=== PATIENT | male | born 1940 | race Caucasian/White ===

== ENCOUNTER 2016-04-30 23:50 | Observation (INO) | payer MEDICARE, BC ==
[2016-05-01] MEDS ORDERED: ASPIRIN 81 MG CHEW PO STA (00:03)
[2016-05-01] MEDS ORDERED: NITROGLYCERIN OINT 1 INCH/GM PACKET TOPICAL STA (00:03)
--- NOTE | 2016-05-01 00:14 | ED ---
General Adult HPI - General Chief complaint: Chest Pain Stated complaint: indigestion Time Seen by Provider: 04/30/16 23:55 Source: patient, RN notes reviewed Mode of arrival: ambulatory Limitations: no limitations - History of Present Illness Initial comments: This is a 75-year-old male presents to the emergency department complaining of some chest pain. Patient describes his discomfort. Patient states it started 2 hours prior to arrival. Patient states he went to his right shoulder when he was driving here but is since subsided from the shoulder but continues in the chest. Patient denies any difficulty breathing. Patient denies any diaphoresis. Patient denies any nausea. Patient denies abdominal pain patient denies nausea vomiting or diarrhea. Patient denies any recent fever chills or cough. Patient denies headache patient denies numbness weakness. Patient denies any lightheadedness dizziness or near syncopal episode. Patient states he thought was heartburn but got a little more significantly thought he needed to come to the hospital to be checked out. Patient states he has congestive heart failure but has never had a heart attack. Patient states he does have diabetes been denies any high cholesterol but does have hypertension. - Related Data Allergies Allergy/AdvReac Type Severity Reaction Status Date / Time No Known Allergies Allergy Verified 04/30/16 23:55 Review of Systems ROS Statement: Those systems with pertinent positive or pertinent negative responses have been documented in the HPI. ROS Other: All systems not noted in ROS Statement are negative. Past Medical History Past Medical History: Coronary Artery Disease (CAD), Diabetes Mellitus, Hyperlipidemia, Hypertension Additional Past Medical History / Comment(s): CHF History of Any Multi-Drug Resistant Organisms: None Reported Past Surgical History: No Surgical Hx Reported Past Psychological History: No Psychological Hx Reported Smoking Status: Former smoker Past Alcohol Use History: None Reported Past Drug Use History: None Reported General Exam - General Exam Comments Initial Comments: GENERAL: Patient is well-developed and well-nourished. Patient is nontoxic and well- hydrated and is in mild distress. ENT: Neck is soft and supple. No significant lymphadenopathy is noted. Oropharynx is clear. Moist mucous membranes. Neck has full range of motion without eliciting any pain. EYES: The sclera were anicteric and conjunctiva were pink and moist. Extraocular movements were intact and pupils were equal round and reactive to light. Eyelids were unremarkable. PULMONARY: Unlabored respirations. Good breath sounds bilaterally. No audible rales rhonchi or wheezing was noted. CARDIOVASCULAR: There is a regular rate and rhythm without any murmurs gallops or rubs. Femoral pulses are equal bilaterally ABDOMEN: Soft and nontender with normal bowel sounds. No palpable organomegaly was noted. There is no palpable pulsatile mass. SKIN: Skin is clear with no lesions or rashes and otherwise unremarkable. NEUROLOGIC: Patient is alert and oriented x3. Cranial nerves II through XII are grossly intact. Motor and sensory are also intact. Normal speech, volume and content. Symmetrical smile. MUSCULOSKELETAL: Normal extremities with adequate strength and full range of motion. 1+ edema bilateral LYMPHATICS: No significant lymphadenopathy is noted PSYCHIATRIC: Normal psychiatric evaluation. 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 Did not start patient on heparin because patient was on Coumadin and the INR was 2.1. Patient is however an unstable angina and will be admitted I spoke with admit the patient and I consult cardiology. EKG showed atrial fibrillation at 60 bpm EKG was a very poor quality QRS interval showed 140 QT was 408 QTC is 433. Patient had no ST segment elevation or depression or ectopy noted A repeat was done because of the poor quality of the first one showed atrial fibrillation at 63 bpm QRS was 140 QT interval is 448 QTC is 458 patient right bundle branch block and it was no ST segment elevation or depression. - Lab Data Result diagrams: 05/01/16 00:20 05/01/16 00:20 Lab Results 05/01/16 05/01/16 05/01/16 Range/Units 00:20 00:20 00:20 WBC 11.4 H (3.8-10.6) k/uL RBC 4.54 (4.30-5.90) m/uL Hgb 12.0 L (13.0-17.5) gm/dL Hct 40.0 (39.0-53.0) % MCV 88.1 (80.0-100.0) fL MCH 26.5 (25.0-35.0) pg MCHC 30.1 L (31.0-37.0) g/dL RDW 13.8 (11.5-15.5) % Plt Count 261 (150-450) k/uL Neutrophils % 83 % Lymphocytes % 8 % Monocytes % 5 % Eosinophils % 3 % Basophils % 0 % Neutrophils # 9.5 H (1.3-7.7) k/uL Lymphocytes # 0.9 L (1.0-4.8) k/uL Monocytes # 0.6 (0-1.0) k/uL Eosinophils # 0.3 (0-0.7) k/uL Basophils # 0.0 (0-0.2) k/uL Hypochromasia Slight PT (9.0-12.0) sec INR (<1.1) APTT (22.0-30.0) sec Sodium 139 (137-145) mmol/L Potassium 4.7 (3.5-5.1) mmol/L Chloride 102 (98-107) mmol/L Carbon Dioxide 24 (22-30) mmol/L Anion Gap 13 mmol/L BUN 27 H (9-20) mg/dL Creatinine 1.10 (0.66-1.25) mg/dL Est GFR (MDRD) Af Amer >60 (>60 ml/min/1.73 sqM) Est GFR (MDRD) Non-Af >60 (>60 ml/min/1.73 sqM) Glucose 170 H (74-99) mg/dL Calcium 9.1 (8.4-10.2) mg/dL Magnesium 1.3 L (1.6-2.3) mg/dL Total Bilirubin 0.7 (0.2-1.3) mg/dL AST 23 (17-59) U/L ALT 39 (21-72) U/L Alkaline Phosphatase 95 (38-126) U/L Total Creatine Kinase 92 (55-170) U/L CK-MB (CK-2) 1.7 (0.0-2.4) ng/mL CK-MB (CK-2) Rel Index 1.8 Troponin I 0.021 (0.000-0.034) ng/mL Total Protein 6.8 (6.3-8.2) g/dL Albumin 3.9 (3.5-5.0) g/dL 05/01/16 Range/Units 00:20 WBC (3.8-10.6) k/uL RBC (4.30-5.90) m/uL Hgb (13.0-17.5) gm/dL Hct (39.0-53.0) % MCV (80.0-100.0) fL MCH (25.0-35.0) pg MCHC (31.0-37.0) g/dL RDW (11.5-15.5) % Plt Count (150-450) k/uL Neutrophils % % Lymphocytes % % Monocytes % % Eosinophils % % Basophils % % Neutrophils # (1.3-7.7) k/uL Lymphocytes # (1.0-4.8) k/uL Monocytes # (0-1.0) k/uL Eosinophils # (0-0.7) k/uL Basophils # (0-0.2) k/uL Hypochromasia PT 20.1 H (9.0-12.0) sec INR 2.1 (<1.1) APTT 30.3 H (22.0-30.0) sec Sodium (137-145) mmol/L Potassium (3.5-5.1) mmol/L Chloride (98-107) mmol/L Carbon Dioxide (22-30) mmol/L Anion Gap mmol/L BUN (9-20) mg/dL Creatinine (0.66-1.25) mg/dL Est GFR (MDRD) Af Amer (>60 ml/min/1.73 sqM) Est GFR (MDRD) Non-Af (>60 ml/min/1.73 sqM) Glucose (74-99) mg/dL Calcium (8.4-10.2) mg/dL Magnesium (1.6-2.3) mg/dL Total Bilirubin (0.2-1.3) mg/dL AST (17-59) U/L ALT (21-72) U/L Alkaline Phosphatase (38-126) U/L Total Creatine Kinase (55-170) U/L CK-MB (CK-2) (0.0-2.4) ng/mL CK-MB (CK-2) Rel Index Troponin I (0.000-0.034) ng/mL Total Protein (6.3-8.2) g/dL Albumin (3.5-5.0) g/dL Disposition Clinical Impression: Unstable angina pectoris Disposition: ADMITTED IP TO THIS [facility] Time of Disposition: 01:10
[2016-05-01 00:31] LABS: Basophils % (A) 0 %; CH 27.3; CHCM 31.2; Eosinophils # (A) 0.3 k/uL (0-0.7); Eosinophils % (A) 3 %; HDW 2.59; Hypochromasia Slight; Luc # (Auto) 0.12; Luc % (Auto) 1; Lymphocytes # (A) 0.9 k/uL (1.0-4.8); Lymphocytes % (A) 8 %; MCH 26.5 pg (25.0-35.0); MCHC 30.1 g/dL (31.0-37.0); MCV 88.1 fL (80.0-100.0); Mean Platelet Volume 8.1; Monocytes # (A) 0.6 k/uL (0-1.0); Monocytes % (A) 5 %; Neutrophils # (A) 9.5 k/uL (1.3-7.7); Neutrophils % (A) 83 %; RBC 4.54 m/uL (4.30-5.90); RDW 13.8 % (11.5-15.5); WBC 11.4 k/uL (3.8-10.6); WBC (Perox) 12.16
[2016-05-01 00:43] LABS: ALT 39 U/L (21-72); AST 23 U/L (17-59); Alkaline Phosphatase 95 U/L (38-126); Anion Gap 13 mmol/L; Blood Urea Nitrogen 27 mg/dL (9-20); Calcium 9.1 mg/dL (8.4-10.2); Carbon Dioxide 24 mmol/L (22-30); Chloride 102 mmol/L (98-107); Glucose 170 mg/dL (74-99); Magnesium 1.3 mg/dL (1.6-2.3); Non-African American GFR(MDRD) >60 (>60 ml/min/1.73 sqM); Potassium 4.7 mmol/L (3.5-5.1); Sodium 139 mmol/L (137-145); Total Bilirubin 0.7 mg/dL (0.2-1.3); Total Protein 6.8 g/dL (6.3-8.2)
[2016-05-01 00:44] LABS: INR 2.1 (<1.1); Partial Thromboplastin Time 30.3 sec (22.0-30.0); Prothrombin Time 20.1 sec (9.0-12.0)
--- NOTE | 2016-05-01 00:53 | XR ---
EXAMINATION TYPE: XR chest 2V DATE OF EXAM: 05/01/2016 12:36 AM COMPARISON: 10/24/2010 HISTORY: Chest pain and indigestion history of CHF. TECHNIQUE: Frontal and lateral views of the chest are obtained. FINDINGS: Mild increased densities in both lung bases are most likely related to mild chronic fibrotic changes. Underlying of active infiltrates in the lung basal areas cannot be excluded. No pneumothorax or pleural effusion is noted. Mild to moderate cardiomegaly and atherosclerotic calci fication is noted in the aortic arch. The osseous structures are intact. IMPRESSION: 1. Possible mild active infiltrates in both lung bases. 2. Chronic lung changes. 3. Cardiomegaly.
[2016-05-01 01:01] LABS: Creatine Kinase MB 1.7 ng/mL (0.0-2.4); Troponin I 0.021 ng/mL (0.000-0.034)
[2016-05-01] MEDS ORDERED: MORPHINE SULFATE 2 MG/ML SYRINGE IVP ONE (01:29)
[2016-05-01] MEDS ORDERED: NITROGLYCERIN SL TABS 0.4 MG TAB SUBLINGUAL STA (01:29)
[2016-05-01] MEDS: NITROGLYCERIN SL TABS 0.4 MG TAB SUBLINGUAL PRN ×2 (01:33→02:15)
[2016-05-01 02:22] VITALS: BMI 43.0
[2016-05-01] MEDS: MAG HYDROX/AL HYDROX/SIMETH 30 ML CUP PO PRN ×2 (02:42→10:18)
[2016-05-01] MEDS ORDERED: ACETAMINOPHEN TAB 500 MG TAB PO PRN (03:03)
[2016-05-01] MEDS ORDERED: HYDROmorphone 1 MG/ML 1 ML SYRINGE IVP STA (03:16)
[2016-05-01] MEDS: NITROGLYCERIN OINT 1 INCH/GM PACKET TOPICAL SCH ×2 (04:53→12:19)
[2016-05-01 06:53] LABS: Glucose,Whole Blood 306 mg/dL (75-99)
[2016-05-01 08:21] VITALS: RESP 18
[2016-05-01 08:49] LABS: Creatine Kinase MB 1.2 ng/mL (0.0-2.4); Troponin I 0.02 ng/mL (0.000-0.034)
[2016-05-01] MEDS ORDERED: NON-FORMULARY DRUG (Aspirin Ec 325 MG) PO SCH (10:15)
[2016-05-01] MEDS ORDERED: EZETIMIBE 10 MG TAB PO SCH (10:30)
[2016-05-01] MEDS ORDERED: ATORVASTATIN 10 MG TAB PO SCH (10:30)
[2016-05-01] MEDS ORDERED: HYDROCHLOROTHIAZIDE 50 MG TAB PO SCH (10:30)
[2016-05-01] MEDS ORDERED: amLODIPine 5 MG TAB PO SCH (10:30)
[2016-05-01] MEDS ORDERED: LOSARTAN 50 MG TAB PO SCH (10:30)
[2016-05-01 11:26] LABS: Amylase 36 U/L (30-110)
[2016-05-01 11:50] LABS: Troponin I 0.019 ng/mL (0.000-0.034)
[2016-05-01 11:56] VITALS: BP 158/66; PULSE 57; TEMP 99
[2016-05-01] MEDS ORDERED: PANTOPRAZOLE 40 MG TABLET PO STA (12:05)
[2016-05-01] MEDS ORDERED: glipiZIDE 10 MG TAB PO SCH (12:15)
[2016-05-01 12:23] LABS: Glucose,Whole Blood 409 mg/dL (75-99)
[2016-05-01 12:24] LABS: Creatine Kinase MB 1.2 ng/mL (0.0-2.4)
[2016-05-01 12:28] LABS: Hemoglobin A1C 8.3 % (4.2-6.1)
[2016-05-01] MEDS ORDERED: INSULIN LISPRO (humaLOG) 300 UNIT/3 ML VIAL SQ ONE (12:32)
[2016-05-01] MEDS ORDERED: INSULIN NPH 300 UNIT/3 ML VIAL SQ ONE (12:33)
--- NOTE | 2016-05-01 12:41 | HP ---
DATE OF ADMISSION: 05/01/2016 PRESENTING COMPLAINT: Epigastric pain. HISTORY OF PRESENTING COMPLAINT: This is a 75-year-old pleasant gentleman patient of Dr. Basurto. Patient's chronic stable medical conditions include CHF, diabetes, GERD, hyperlipidemia, hypertension. Patient yesterday felt a severe sense of indigestion, discomfort in the epigastric area with pain going to both the shoulders. Patient actually vomited. The patient the night before had beef jerky and spicy beef sticks more than usual. There is no shortness of breath. No dizziness. Patient had bleeding ulcer in the past and still feeling the discomfort in the epigastric area and in the lower sternal area. Feels more like indigestion. Because of his cardiac history, patient admitted to rule out a cardiac cause. REVIEW OF SYSTEMS: CONSTITUTIONAL: None. HEENT: None. RESPIRATORY: None. CARDIOVASCULAR: No precordial pain. GASTROINTESTINAL: As above. GENITOURINARY: None. MUSCULOSKELETAL: Some pain in the joints. DERMATOLOGICAL: None. HEMATOLOGICAL: None. LYMPHATICS: None. PSYCHIATRY: None. NEUROLOGICAL: None. PAST MEDICAL HISTORY: Atrial fibrillation, congestive heart failure, diabetes mellitus type 2., GERD, hyperlipidemia, hypertension, psoriasis. PAST SURGICAL HISTORY: Hernia repair. SOCIAL HISTORY: The patient did smoke in the past. No alcohol. 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 . Family history of coronary artery disease. HOME MEDICATIONS: 1. Norvasc 5 mg p.o. daily. 2. Irbesartan 300 mg p.o. daily. 3. Hydrochlorothiazide 50 mg p.o. daily. 4. Januvia 100 mg p.o. q.h.s. 5. Glucovance 5/500 one tablet p.o. b.i.d. 6. Coumadin 10 mg on Thursday, Thursday, , Thursday and 7.5 on Thursday, Thursday and Thursday. 7. Omeprazole 20 mg p.o. daily. 8. Vytorin 10/20 one tablet p.o. daily. 9. Vitamin D3 one tablet p.o. daily. 10. Aspirin 325 mg daily. ALLERGIES: None. ON EXAMINATION: VITAL SIGNS ON PRESENTATION: Temperature 98, pulse 69, respirations 20, blood pressure 188/75, pulse ox 96% on 2 L. GENERAL APPEARANCE: Well built, BMI of 43.1, sitting up, not in distress. EYES: Pupils equal. Conjunctivae normal. HEENT: External appearance of nose and ears normal. Oral cavity normal. NECK: JVD not raised. Mass not palpable. RESPIRATORY: Effort normal. LUNGS: Slightly decreased breath sounds. CARDIOVASCULAR: First and second sounds normal. Edema present. ABDOMEN: Soft, nontender, distended. Liver and spleen not palpable. LYMPHATIC: No lymph nodes palpable in the neck or axillae. PSYCHIATRY: Alert and oriented x3. Mood and affect normal. NEUROLOGICAL: Pupils equal. Cranial nerves grossly intact. Power and sensation grossly intact. INVESTIGATIONS: White count 11.4, hemoglobin 12, platelets 261. INR 2.1. Potassium 4.7. BUN 27, creatinine 1.10. Glucose 170, repeat 306. Troponin 0.021, 0.020. EKG shows right bundle brunch block, atrial fibrillation, rate controlled. ASSESSMENT: 1. Acute epigastric pain with localized tenderness in a patient who had some spicy food with prior history of bleeding peptic ulcer disease, most likely flare up of gastritis or maybe even an underlying ulcer. Given his cardiac history, will get a cardiac opinion, but this all appears to be really GI. 2. Right bundle branch block. 3. Chronic congestive heart failure, ejection fraction not known. 4. Diabetes mellitus type 2 on oral hypoglycemics. 5. Obesity, morbid, body mass index 43.1. 6. Severe gastroesophageal reflux disease. 7. Hyperlipidemia. 8. Essential hypertension. PLAN: I gave patient bedside milk and yogurt, right away symptoms felt better. Will cut back on the dose of aspirin. Cardiology was consulted to give their opinion. Home medication will be resumed. Patient was told to improve his diet. Patient will be put on PPIs. In the meantime, other medication and treatment plan is to continue.
[2016-05-01] MEDS ORDERED: WARFARIN 10 MG TAB PO SCH (18:00)
[2016-05-01] MEDS ORDERED: LINAGLIPTIN 5 MG TABLET PO SCH (21:00)
[2016-05-01] MEDS ORDERED: metFORMIN 500 MG TAB PO SCH (21:00)
[2016-05-02] MEDS ORDERED: ASPIRIN 325 MG TAB PO SCH (09:00)
[2016-05-02] MEDS ORDERED: WARFARIN 7.5 MG TAB PO SCH (18:00)
--- NOTE | 2016-05-07 12:00 | DS ---
DATE OF ADMISSION: 05/01/2016 DATE OF DISCHARGE: 05/01/2016 FINAL DIAGNOSES: 1. Acute epigastric pain, possibly peptic ulcer disease or acute gastritis. 2. Right bundle branch block, chronic. 3. Chronic congestive heart failure. Ejection fraction not known from hypertensive heart disease. 4. Diabetes mellitus type 2 on oral hypoglycemic. 5. Morbid obesity, body mass index of 43.1. 6. Severe gastroesophageal reflux disease, acute on chronic flareup. 7. Hyperlipidemia. 8. Essential hypertension. HOSPITAL COURSE: This patient presented with epigastric pain, did actually feel better with yogurt and milk. The patient has history of peptic ulcer disease, has been eating spicy food. Patient is put on PPIs and told to follow up with GI. [facility] was consulted. DISCHARGE MEDICATIONS: 1. Aspirin 81 mg daily. 2. Tums 500 mg p.o. q.i.d. 3. Vitamin D3 one tablet p.o. daily. 4. Vytorin 10/20 one tablet daily. 5. Hydrochlorothiazide 50 mg p.o. daily. 6. Irbesartan 300 mg p.o. daily. 7. Protonix 40 mg p.o. daily. 8. Coumadin 7.5 mg Thursday, Thursday, Thursday and 10 mg on Thursday, Thursday, , Thursday. 9. Norvasc 5 mg p.o. daily. 10. Glucovance 5/500 one tablet p.o. b.i.d. 11. Januvia 100 mg p.o. q.h.s. Follow up with Dr. Basurto in one week. Follow up with Dr. Sana Berger in 2 weeks. DIET: Soft bland. ABDOMEN: Soft, nontender. CARDIOVASCULAR: First and second sounds normal.
--- NOTE | 2016-05-09 08:28 | CONS ---
DATE OF CONSULTATION: This is a 75-year-old male patient who presented with feeling of indigestion, heartburn and epigastric discomfort that radiated to both shoulders. He was vomiting. The night before he had eaten spicy foods. He denied any sweating or diaphoresis or any undue shortness of breath at that time. ( ) a feeling of indigestion with heartburn. Three sets of cardiac enzymes were normal. Twelve-lead ECG shows baseline artifact. Does not show any definite ST segment abnormalities. REVIEW OF SYSTEMS: No fever, chills, or rigors. No cough or expectoration. He had no nausea and no vomiting. No diarrhea. No hematuria or dysuria. No strokes or seizures. No skin lesions. No musculoskeletal complaints. Past history of diabetes type 2, GERD, dyslipidemia, hypertension, psoriasis, atrial fibrillation. PAST SURGICAL HISTORY: Hernia repair. SOCIAL HISTORY: He was a smoker in the past. No alcohol use. Medication list was reviewed and is documented in the chart. ALLERGIES: None. On examination, blood pressure was elevated at 180/75 mm of mercury, respirations normal, afebrile. Pulse rate was normal. BMI is 43. The patient looks quite comfortable. Head and neck examination is normal. Heart sounds S1, S2 normal. No murmurs or gallops. ABDOMEN: Soft, nontender. EXTREMITIES: Warm. No edema. LABS: Reviewed. Cardiac enzymes are normal. ( ) shows a right bundle branch block, atrial fibrillation, rate control. No ST segment abnormalities. IMPRESSION: 1. Epigastric discomfort with prior history of peptic ulcer disease. Normal cardiac enzymes. Right bundle branch block by history. He has a history of chronic congestive heart failure but we do not know ejection fraction at this time. 2. Type 2 diabetes. 3. Hypertension. 4. Dyslipidemia. Suggest: Once his cardiac enzymes are normal, he can be scheduled for inpatient/outpatient stress test but prior to that I would like to give a gastrointestinal cocktail to see if his pain will get better. He still continued to have pain and he has almost constant pain since the night before with three normal cardiac enzymes.
== END 2016-05-01 15:15 | disposition home or self-care (01) ==
LOC: EC 23:50 → 3OBS 05-01 01:10
PROVIDERS: ADMIT Hospitalist; ATTEND Hospitalist
DX: R10.13 Epigastric pain (principal); I11.0 Hypertensive heart disease with heart failure; I45.10 Unspecified right bundle-branch block; I48.91 Unspecified atrial fibrillation; E11.9 Type 2 diabetes mellitus without complications; E78.5 Hyperlipidemia, unspecified; Z79.84 Long term (current) use of oral hypoglycemic drugs; Z68.41 Body mass index [BMI] 40.0-44.9, adult; E66.01 Morbid (severe) obesity due to excess calories; K21.9 Gastro-esophageal reflux disease without esophagitis; Z87.891 Personal history of nicotine dependence; Z82.49 Family history of ischemic heart disease and other diseases of the circulatory system; Z79.01 Long term (current) use of anticoagulants; Z79.82 Long term (current) use of aspirin; I25.10 Atherosclerotic heart disease of native coronary artery without angina pectoris; R11.10 Vomiting, unspecified; Z87.11 Personal history of peptic ulcer disease; Z79.899 Other long term (current) drug therapy
CPT/HCPCS: 96374; 99285; 36415; 93005; 80053; 82150; 83036; 82550; 82553; 83690; 83735; 84484; 85025; 85610; 85730; 71020; G0378; J2270; J1170; 96375

== ENCOUNTER 2016-05-10 17:42 | Emergency (ER) | payer MEDICARE, BC ==
[2016-05-10] MEDS ORDERED: IPRATROPIUM-ALBUTEROL 3 ML NEB INHALATION STA (17:47)
[2016-05-10] MEDS ORDERED: SODIUM CHLORIDE 0.9% 1,000 ML IV STA ×3 (17:47→19:55)
[2016-05-10] MEDS ORDERED: FUROSEMIDE 10 MG/ML 4 ML VIAL IV STA (17:53)
--- NOTE | 2016-05-10 17:53 | ED ---
SOB HPI - General Chief Complaint: Shortness of Breath Stated Complaint: weakness Time Seen by Provider: 05/10/16 17:42 Source: patient, EMS, RN notes reviewed Mode of arrival: EMS Limitations: no limitations - History of Present Illness Initial Comments: Is a 75-year-old male with a history of CHF GERD diabetes who was just discharged from the hospital within the week for abdominal pain from peptic ulcer who states she's been feeling weaker and more short of breath since he was discharged. He was brought in by EMS after being found be short of breath hypoxemic pale. He complains some midepigastric chest discomfort he points to the subxiphoid region. He was given 324 mg of aspirin by EMS. He denies any fevers chills or sweats so he did feel somewhat clammy per paramedics. There is suspicion of an ST elevation VT does appear to be secondary to a bundle- branch block. MD Complaint: shortness of breath - Related Data Home Medications Medication Instructions Recorded Confirmed Cholecalciferol [Vitamin D3] 400 unit PO DAILY 05/01/16 05/10/16 Ezetimibe/Simvastatin [Vytorin 1 tab PO DAILY 05/01/16 05/10/16 10-20 mg Tablet] Hydrochlorothiazide 50 mg PO DAILY 05/01/16 05/10/16 Irbesartan 300 mg PO DAILY 05/01/16 05/10/16 Warfarin [Coumadin] 7.5 mg PO MOWEFR 05/01/16 05/10/16 Warfarin [Coumadin] 10 mg PO SUTUTHSA 05/01/16 05/10/16 amLODIPine [Norvasc] 5 mg PO DAILY 05/01/16 05/10/16 glyBURIDE/METFORMIN HCL 1 tab PO BID 05/01/16 05/10/16 [Glucovance 5-500 mg Tablet] sitaGLIPtin [Januvia] 100 mg PO HS 05/01/16 05/10/16 Previous Rx's Medication Instructions Recorded Aspirin 81 mg PO DAILY #1 chewable 05/01/16 Calcium Carbonate [Tums] 500 mg PO QID #1 chew 05/01/16 Pantoprazole Sodium [Protonix] 40 mg PO DAILY #30 tablet. 05/01/16 Allergies Allergy/AdvReac Type Severity Reaction Status Date / Time No Known Allergies Allergy Verified 05/10/16 18:46 Review of Systems ROS Statement: Those systems with pertinent positive or pertinent negative responses have been documented in the HPI. ROS Other: All systems not noted in ROS Statement are negative. Past Medical History Past Medical History: Atrial Fibrillation, Heart Failure, Diabetes Mellitus, GERD/Reflux, Hyperlipidemia, Hypertension Additional Past Medical History / Comment(s): psoriasis History of Any Multi-Drug Resistant Organisms: None Reported Past Surgical History: Hernia Repair Past Anesthesia/Blood Transfusion Reactions: No Reported Reaction Past Psychological History: No Psychological Hx Reported Smoking Status: Former smoker Past Alcohol Use History: None Reported Past Drug Use History: None Reported - Past Family History Father History Unknown: Yes Family Medical History: Coronary Artery Disease (CAD) General Exam - General Exam Comments Initial Comments: This is a well little pulmonary awake alert lethargic appearing male Limitations: no limitations General appearance: alert, lethargic Head exam: Present: atraumatic, normocephalic, normal inspection Eye exam: Present: PERRL, EOMI, other (Pale conjunctiva he does demonstrate arcus senilis bilaterally) ENT exam: Present: normal exam, mucous membranes moist Neck exam: Present: normal inspection. Absent: tenderness, meningismus, lymphadenopathy Respiratory exam: Present: chest wall tenderness, decreased breath sounds Cardiovascular Exam: Present: tachycardia GI/Abdominal exam: Present: soft, distended. Absent: tenderness Rectal exam: Present: deferred Extremities exam: Present: other (Cool to touch) Back exam: Present: normal inspection Neurological exam: Present: alert, oriented X3, CN II-XII intact Psychiatric exam: Present: other (Difficult to ascertain at this time) Skin exam: Present: dry, intact, pallor (Cool to touch) Course Vital Signs 05/10/16 05/10/16 05/10/16 17:43 17:49 17:58 Temperature 95.5 F L Pulse Rate 76 85 Respiratory 24 24 26 H Rate Blood Pressure 215/152 O2 Sat by Pulse 78 L 98 Oximetry 05/10/16 05/10/16 05/10/16 18:09 18:31 18:48 Temperature 95.7 F L Pulse Rate 57 L 53 L 57 L Respiratory 22 23 18 Rate Blood Pressure 106/50 97/55 O2 Sat by Pulse 100 100 100 Oximetry 05/10/16 05/10/16 05/10/16 19:15 19:25 19:33 Temperature Pulse Rate 60 60 72 Respiratory 20 Rate Blood Pressure 94/52 O2 Sat by Pulse Oximetry 05/10/16 05/10/16 05/10/16 20:00 20:15 20:50 Temperature 97.4 F L Pulse Rate 34 L 75 Respiratory 8 L 16 Rate Blood Pressure 124/75 O2 Sat by Pulse 95 Oximetry 05/10/16 05/10/16 05/10/16 21:31 22:03 22:19 Temperature 97 F L Pulse Rate 54 L 61 117 H Respiratory 18 16 16 Rate Blood Pressure 181/100 144/94 O2 Sat by Pulse 92 L 92 L Oximetry 05/10/16 05/10/16 22:48 23:44 Temperature Pulse Rate 56 L 39 L Respiratory 16 Rate Blood Pressure 92/55 59/39 O2 Sat by Pulse 92 L Oximetry - Reevaluation(s) Reevaluation #1: 05/10/16 23:29 The patient was coded now for the fourth time he did have 3 prior episodes became pulseless with the bradycardia and 1.80 rhythm. He did require cardioversion twice thus far. He currently is on an epinephrine drip. Please see the attached code sheets. Reevaluation #2: 05/10/16 23:30 Repeat x-ray after the endotracheal intubation revealed the tube being in good position. Reevaluation #3: 05/10/16 23:31 I did discuss the findings to the patient's and son on several occasions. Patient's had mentioned that the patient did not want to be on a ventilator. At this time since he is already on a ventilator they wish to proceed with ACLS ventilator efforts. I did discuss with them the poor prognosis and appears evident at this time Reevaluation #4: 05/11/16 00:07 Patient began to drop his blood pressure and become bradycardic and. He did lose all pulses. We're unable to revive him after this. Patient was pronounced at 23:47 PM. I did discuss the case extensively with family members and with the medical billing manager's office. Patient was released. Procedures - Intubation Time Out Performed: No (I was at bedside when the patient was noted to be unresponsive and) Laryngoscope: Chamberlain Size: 3 ET Tube Size: 8 ET Tube Uncuffed: No (A cuffed tube) Tube Secured Depth (cm): 23 Tube Placement Confirmation: visualized tube passing through cords, equal breath sounds bilaterally Patient Tolerated Procedure: well, no complications Intubation Complications: none Medical Decision Making - Medical Decision Making The patient originally came into the emergency department by ambulance with complaints of one week of shortness of breath he progressively worse he initially was hypoxic and very dyspneic upon arrival. He was placed initially on BiPAP and did seem to respond to. Lab work was obtained did have evidence of a white count of 17.7 and INR of greater than 10 evidence of acute renal failure with a potassium of 6.7 pCO2 of 5 glucose 379 his original lactate level is 14.8. The patient did respond to the original BiPAP and clinically he did appear to have congestive heart failure evidence. This is what one of his previous admitting diagnoses consisted of. He initially did seem to respond to initial therapy. Once labs were obtained and there was some evidence of elevated lactate and possible sepsis aggressive management was begun using IV fluids initially IV antibiotics. With the INR greater than 10 the fear was possible brain bleed. The patient did however going to a respiratory arrest and did require orotracheal intubation. He also didn't went to a cardiac arrest did require CPR. He has she did require CPR or 4 different occasions. A CAT scan was eventually obtained showing no acute findings. The original x- ray showed cardiomegaly with no evidence of any infiltrates. Repeat x-ray after intubation showed the endotracheal tube in good position again with no evidence of infiltrates. The original plan was admit the patient to the intensive care unit but due to the numerous code situations it was felt better to keep the patient in the emergency department where he could be under close surveillance. I had multiple discussions with the patient's family the patient' s had stated that he had not wish to be placed on a ventilator which was unknown initially. The family wishes to continue with aggressive efforts until they finally became futile. The tentative multiple diagnoses include sudden cardiac , acute respiratory failure, acute renal failure. Sepsis is considered though no source of infection was evident at this time. Therefore the elevated lactate is likely due to viral depletion and renal failure. Also due to the patient's history cardiomyopathy is considered - Lab Data Result diagrams: 05/10/16 17:50 05/10/16 20:42 Lab Results 05/10/16 05/10/16 05/10/16 Range/Units 17:50 17:50 17:50 WBC 17.7 H (3.8-10.6) k/uL RBC 4.43 (4.30-5.90) m/uL Hgb 11.5 L (13.0-17.5) gm/dL Hct 41.8 (39.0-53.0) % MCV 94.4 D (80.0-100.0) fL MCH 26.0 (25.0-35.0) pg MCHC 27.6 L (31.0-37.0) g/dL RDW 13.7 (11.5-15.5) % Plt Count 624 H D (150-450) k/uL Neutrophils % (Manual) 85.0 % Band Neutrophils % 1.0 % Lymphocytes % (Manual) 11.0 % Monocytes % (Manual) 3.0 % Neutrophils # (Manual) 15.2 H (1.3-7.7) k/uL Lymphocytes # (Manual) 1.9 (1.0-4.8) k/uL Monocytes # (Manual) 0.5 (0-1.0) k/uL Nucleated RBCs 0 (0-0) /100 WBC Manual Slide Review Performed Hypochromasia Marked PT (9.0-12.0) sec INR (<1.1) APTT (22.0-30.0) sec Sodium 138 (137-145) mmol/L Potassium 6.7 H* (3.5-5.1) mmol/L Chloride 96 L (98-107) mmol/L Carbon Dioxide 5 L* (22-30) mmol/L Anion Gap 36 mmol/L BUN 102 H* (9-20) mg/dL Creatinine 6.30 H* (0.66-1.25) mg/dL Est GFR (MDRD) Af Amer 11 (>60 ml/min/1.73 sqM) Est GFR (MDRD) Non-Af 9 (>60 ml/min/1.73 sqM) Glucose 329 H (74-99) mg/dL Plasma Lactic Acid Michel (0.7-2.0) mmol/L Calcium 9.7 (8.4-10.2) mg/dL Magnesium 2.0 (1.6-2.3) mg/dL Total Bilirubin 0.8 (0.2-1.3) mg/dL AST 1421 H (17-59) U/L ALT 925 H (21-72) U/L Alkaline Phosphatase 85 (38-126) U/L Total Creatine Kinase 100 (55-170) U/L CK-MB (CK-2) 3.4 H* (0.0-2.4) ng/mL CK-MB (CK-2) Rel Index 3.4 Troponin I 0.020 (0.000-0.034) ng/mL NT-Pro-B Natriuret Pep pg/mL Total Protein 6.8 (6.3-8.2) g/dL Albumin 3.7 (3.5-5.0) g/dL 05/10/16 05/10/16 05/10/16 Range/Units 17:50 17:50 17:50 WBC (3.8-10.6) k/uL RBC (4.30-5.90) m/uL Hgb (13.0-17.5) gm/dL Hct (39.0-53.0) % MCV (80.0-100.0) fL MCH (25.0-35.0) pg MCHC (31.0-37.0) g/dL RDW (11.5-15.5) % Plt Count (150-450) k/uL Neutrophils % (Manual) % Band Neutrophils % % Lymphocytes % (Manual) % Monocytes % (Manual) % Neutrophils # (Manual) (1.3-7.7) k/uL Lymphocytes # (Manual) (1.0-4.8) k/uL Monocytes # (Manual) (0-1.0) k/uL Nucleated RBCs (0-0) /100 WBC Manual Slide Review Hypochromasia PT >130.0 H (9.0-12.0) sec INR >10.0 H* (<1.1) APTT 49.2 H (22.0-30.0) sec Sodium (137-145) mmol/L Potassium (3.5-5.1) mmol/L Chloride (98-107) mmol/L Carbon Dioxide (22-30) mmol/L Anion Gap mmol/L BUN (9-20) mg/dL Creatinine (0.66-1.25) mg/dL Est GFR (MDRD) Af Amer (>60 ml/min/1.73 sqM) Est GFR (MDRD) Non-Af (>60 ml/min/1.73 sqM) Glucose (74-99) mg/dL Plasma Lactic Acid Michel 14.8 H* (0.7-2.0) mmol/L Calcium (8.4-10.2) mg/dL Magnesium (1.6-2.3) mg/dL Total Bilirubin (0.2-1.3) mg/dL AST (17-59) U/L ALT (21-72) U/L Alkaline Phosphatase (38-126) U/L Total Creatine Kinase (55-170) U/L CK-MB (CK-2) (0.0-2.4) ng/mL CK-MB (CK-2) Rel Index Troponin I (0.000-0.034) ng/mL NT-Pro-B Natriuret Pep 450 pg/mL Total Protein (6.3-8.2) g/dL Albumin (3.5-5.0) g/dL 05/10/16 05/10/16 Range/Units 20:42 20:42 WBC (3.8-10.6) k/uL RBC (4.30-5.90) m/uL Hgb (13.0-17.5) gm/dL Hct (39.0-53.0) % MCV (80.0-100.0) fL MCH (25.0-35.0) pg MCHC (31.0-37.0) g/dL RDW (11.5-15.5) % Plt Count (150-450) k/uL Neutrophils % (Manual) % Band Neutrophils % % Lymphocytes % (Manual) % Monocytes % (Manual) % Neutrophils # (Manual) (1.3-7.7) k/uL Lymphocytes # (Manual) (1.0-4.8) k/uL Monocytes # (Manual) (0-1.0) k/uL Nucleated RBCs (0-0) /100 WBC Manual Slide Review Hypochromasia PT (9.0-12.0) sec INR (<1.1) APTT (22.0-30.0) sec Sodium 140 (137-145) mmol/L Potassium 6.3 H* (3.5-5.1) mmol/L Chloride 97 L (98-107) mmol/L Carbon Dioxide 11 L (22-30) mmol/L Anion Gap 32 mmol/L BUN 104 H* (9-20) mg/dL Creatinine 6.52 H* (0.66-1.25) mg/dL Est GFR (MDRD) Af Amer 10 (>60 ml/min/1.73 sqM) Est GFR (MDRD) Non-Af 8 (>60 ml/min/1.73 sqM) Glucose 259 H (74-99) mg/dL Plasma Lactic Acid Michel 16.9 H* (0.7-2.0) mmol/L Calcium 9.8 (8.4-10.2) mg/dL Magnesium 2.2 (1.6-2.3) mg/dL Total Bilirubin 0.8 (0.2-1.3) mg/dL AST 2760 H (17-59) U/L ALT 1567 H (21-72) U/L Alkaline Phosphatase 83 (38-126) U/L Total Creatine Kinase (55-170) U/L CK-MB (CK-2) (0.0-2.4) ng/mL CK-MB (CK-2) Rel Index Troponin I (0.000-0.034) ng/mL NT-Pro-B Natriuret Pep pg/mL Total Protein 6.7 (6.3-8.2) g/dL Albumin 3.6 (3.5-5.0) g/dL - EKG Data -: EKG Interpreted by Nm EKG shows normal: sinus rhythm ( QRS 144 daily since QTC of 470/437 occasional PVC. The morphology appears to be very similar to an EKG dated 05/03/16 and is consistent with a one submitted by EMS.) - Radiology Data Radiology results: report reviewed (I did review the report and initial x-rays showed evidence of cardiomegaly but no definite infiltrates.), image reviewed Critical Care Time Critical Care Time: Yes Critical Care Time: Proximal a 79 minutes of critical care time which included initial monitoring of the EMS call and discussed with paramedics. History physical lab and x-ray orders. Multiple evaluations the patient. Multiple discussions with family members and review of previous charting. This did not include the intubation which did include the code calls of the patient. This also did include discussion with the medical billing manager's office. This also included again multiple discussions with the patient's family discuss with staff documentation of the above. Disposition Clinical Impression: Sudden cardiac , Acute respiratory failure, Acute renal failure (ARF), Coumadin toxicity, Lactic acidosis, Hyperkalemia, Hyperglycemia Disposition: Preliminary Cause of : Sudden cardiac , acute respiratory failure, acute renal failure
[2016-05-10] MEDS ORDERED: NITROGLYCERIN OINT 1 INCH/GM PACKET TOPICAL STA (17:54)
[2016-05-10 18:34] LABS: CH 26.2; CHCM 27.9; HCT 41.8 % (39.0-53.0); HDW 2.29; HGB 11.5 gm/dL (13.0-17.5); Hypochromasia Marked; Mean Platelet Volume 9.5; RBC 4.43 m/uL (4.30-5.90); RDW 13.7 % (11.5-15.5); WBC 17.7 k/uL (3.8-10.6); WBC (Perox) 17.43
[2016-05-10 18:36] LABS: MCHC 27.6 g/dL (31.0-37.0); MCV 94.4 fL (80.0-100.0)
[2016-05-10 18:41] LABS: Calcium 9.7 mg/dL (8.4-10.2); Total Bilirubin 0.8 mg/dL (0.2-1.3); Total Protein 6.8 g/dL (6.3-8.2)
[2016-05-10 18:43] LABS: Partial Thromboplastin Time 49.2 sec (22.0-30.0)
--- NOTE | 2016-05-10 18:53 | XR ---
EXAMINATION TYPE: XR chest 1V portable DATE OF EXAM: 05/10/2016 6:42 PM COMPARISON: May 01, 2016 HISTORY: Short of breath TECHNIQUE: Single frontal view of the chest is obtained. FINDINGS: Heart is enlarged. There is no gross heart failure. I see no definite pleural effusion. Th ere are chest leads. IMPRESSION: Severe cardiomegaly that is the same or worse than last exam. No gross heart failure.
[2016-05-10 18:54] LABS: Troponin I 0.02 ng/mL (0.000-0.034)
[2016-05-10 18:55] LABS: Potassium 6.7 mmol/L (3.5-5.1)
[2016-05-10 18:58] LABS: Prothrombin Time >130.0 sec (9.0-12.0)
[2016-05-10 18:59] LABS: Creatine Kinase MB 3.4 ng/mL (0.0-2.4)
[2016-05-10 19:01] LABS: INR >10.0 (<1.1)
[2016-05-10] MEDS ORDERED: SODIUM BICARB 8.4% 50 ML SYR (1 MEQ/ML) IV STA (19:15)
[2016-05-10] MEDS ORDERED: INSULIN REGULAR 100 UNIT/ML VIAL IV ONE (19:15)
[2016-05-10] MEDS ORDERED: CALCIUM CHLORIDE 100 MG/ML 10 ML SYRINGE IVP STA (19:17)
[2016-05-10] MEDS ORDERED: SODIUM POLYSTYRENE SULFONATE 15 GM/60 ML BOTTLE PO ONE (19:18)
[2016-05-10] MEDS ORDERED: SODIUM CHLORIDE 0.9% IVPB STA (19:42)
[2016-05-10] MEDS ORDERED: CEFTRIAXONE IVPB STA (19:42)
[2016-05-10] MEDS ORDERED: SODIUM CHLORIDE 0.9% 2,000 ML IV ONE (19:55)
[2016-05-10] MEDS ORDERED: ATROPINE SULFATE 0.1 MG/ML 10ML SYRINGE ONE (21:00)
[2016-05-10] MEDS ORDERED: CALCIUM CHLORIDE 100 MG/ML 10 ML SYRINGE ONE (21:00)
[2016-05-10] MEDS ORDERED: EPINEPHrine 10 ML SYRINGE (0.1 MG/ML) ONE (21:00)
[2016-05-10] MEDS ORDERED: SODIUM BICARB 8.4% 50 ML SYR (1 MEQ/ML) ONE (21:00)
--- NOTE | 2016-05-10 21:06 | XR ---
EXAMINATION TYPE: XR chest 1V portable DATE OF EXAM: 05/10/2016 8:58 PM COMPARISON: 05/10/2016 HISTORY: Check tube placement TECHNIQUE: Single frontal view of the chest is obtained. FINDINGS: Endotracheal tube is in fairly good position. There is a nasogastric tube. Heart is enlarg ed. There is no gross heart failure. IMPRESSION: Severe cardiomegaly. Endotracheal tube appears in good position.
[2016-05-10 21:08] LABS: Calcium 9.8 mg/dL (8.4-10.2); Magnesium 2.2 mg/dL (1.6-2.3); Total Bilirubin 0.8 mg/dL (0.2-1.3); Total Protein 6.7 g/dL (6.3-8.2)
[2016-05-10 21:13] LABS: Potassium 6.3 mmol/L (3.5-5.1)
[2016-05-10 21:13] LABS: Add Differential Manual Differential
[2016-05-10 21:15] LABS: Manual Review Performed; Nucleated Red Blood Cells 0 /100 WBC (0-0); Total Cells Counted 100
[2016-05-10 21:32] VITALS: TEMP 97
--- NOTE | 2016-05-10 22:00 | CT ---
EXAMINATION TYPE: CT brain wo con DATE OF EXAM: 05/10/2016 9:53 PM COMPARISON: NONE HISTORY: unresponsive CT DLP: 1106.60 mGycm Automated exposure control for dose reduction was used. FINDINGS: There is cerebral cortical atrophy. There is no mass effect nor midline shift. There is no sign of in tracranial hemorrhage. The calvarium is intact. IMPRESSION: Cerebral atrophy. No acute intracranial abnormality. 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
[2016-05-10 22:04] VITALS: RESP 16
[2016-05-10] MEDS ORDERED: EPINEPHrine 2 MG in DEXTROSE 5% IN WATER 250 ML IV ONE ×2 (22:26)
[2016-05-10 23:45] VITALS: BP 59/39; PULSE 39
== END 2016-05-11 01:47 | disposition expired ==
LOC: EC 17:42
DX: I46.9 Cardiac arrest, cause unspecified (principal); J96.00 Acute respiratory failure, unspecified whether with hypoxia or hypercapnia; N17.9 Acute kidney failure, unspecified; T45.511A Poisoning by anticoagulants, accidental (unintentional), initial encounter; E87.2 Acidosis; E87.5 Hyperkalemia; E11.65 Type 2 diabetes mellitus with hyperglycemia; I42.9 Cardiomyopathy, unspecified; I48.91 Unspecified atrial fibrillation; I10 Essential (primary) hypertension; E78.5 Hyperlipidemia, unspecified; Z87.891 Personal history of nicotine dependence; Z79.899 Other long term (current) drug therapy; Z79.84 Long term (current) use of oral hypoglycemic drugs; Z79.01 Long term (current) use of anticoagulants
CPT/HCPCS: 31500 ×2; 92950 ×2; 96361 ×2; 96365 ×2; 96375 ×2; 99291; 36415; 94640; 94002; 93005; 83880; 80053; 82550; 82553; 83605; 83735; 84484; 85025; 85610; 85730; 87040; 71010; 70450; J0171 ×2; J1940; J0461; J0696